=== PATIENT | female | born 1985 | race Caucasian/White ===

== ENCOUNTER 2016-08-31 12:55 | Inpatient (IN) | payer MEDICAID ==
[2016-08-31] MEDS ORDERED: ZOFRAN IV ONE (13:47)
[2016-08-31] MEDS ORDERED: NACL 0.9% 1000 ML 1,000 ML IV ONE (13:47)
--- NOTE | 2016-08-31 13:50 | Emergency Department Report ---
Chief Complaint: Nausea/Vomiting/Diarrhea Stated Complaint: N/V X3 DAYS Time Seen by Provider: 08/31/16 13:45 - HPI History of Present Illness: 31-year-old -Malagasy female that's now weeks was recently seen at [facility] on 08/27/2016 for complaints of nausea vomiting. Patient is here for reevaluation because symptoms persist she cannot keep any meds or foods down which has helped with her symptoms. - Exam Vital Signs: Vital Signs 08/31/16 13:37 Temperature 98.4 F Pulse Rate 107 H Respiratory 20 Rate Blood Pressure 125/80 O2 Sat by Pulse 100 Oximetry Physical Exam: Patient's alert and oriented but appears to be tired and weak, actively vomiting exam room. Cardiovascular tachycardic respiratory labor is abdomen soft nontender breath sounds noted. MSE screening note: Focused history and physical exam performed. Due to findings the following was ordered: Patient's been evaluated by this provider. Ordered CBC CMP lipase urinalysis urine quantitative IV insertion normal saline IV Zofran 4 mg. Patient be evaluated in the main ER ED Disposition for MSE Condition: Stable
[2016-08-31 14:21] LABS: Hematocrit 39.5 % (30.3-42.9); Hemoglobin 13.3 gm/dl (10.1-14.3); Mean Corpuscular HGB Conc 34 % (30-34); Mean Corpuscular Hemoglobin 31 pg (28-32); Mean Corpuscular Volume 92 fl (79-97); Platelet Count 220 K/mm3 (140-440); Red Blood Count 4.28 M/mm3 (3.65-5.03); Red Cell Distribution Width 12.7 % (13.2-15.2); White Blood Count 9.6 K/mm3 (4.5-11.0)
[2016-08-31 14:41] LABS: Alanine Aminotransferase 44 units/L (7-56); Albumin 4.2 g/dL (3.9-5); Albumin/Globulin Ratio 1.3 %; Alkaline Phosphatase 50 units/L (35-129); Anion Gap 24 mmol/L; Bilirubin,Total 0.4 mg/dL (0.1-1.2); Blood Urea Nitrogen 12 mg/dL (7-17); Calcium 9.9 mg/dL (8.4-10.2); Carbon Dioxide 18 mmol/L (22-30); Chloride 99.4 mmol/L (98-107); Glucose 74 mg/dL (65-100); Potassium 4.2 mmol/L (3.6-5.0); Sodium 137 mmol/L (137-145); Total Protein 7.4 g/dL (6.3-8.2)
[2016-08-31 14:56] LABS: Bilirubin,Urine NEG (Negative); Blood,Urine NEG (Negative); Ketones,Urine 80 mg/dL (Negative); Leukocyte Esterase,Urine MOD (Negative); Mucus,Urine 3+ /HPF; Nitrite,Urine NEG (Negative); Urobilinogen,Urine < 2.0 mg/dL (<2.0)
[2016-08-31] MEDS ORDERED: D5NS 1,000 ML IV SCH (16:00)
[2016-08-31] MEDS ORDERED: REGLAN IV ONE (16:04)
[2016-08-31] MEDS ORDERED: ROCEPHIN/NS 1 GM/50 ML 1 GM/50 ML BAG IV ONE ×2 (17:12→19:37)
--- NOTE | 2016-08-31 17:17 | Emergency Department Report ---
HPI - General Chief Complaint: Nausea/Vomiting/Diarrhea Time Seen by Provider: 08/31/16 13:45 - HPI HPI: Chief complaint: Vomiting HPI: Patient is a 31-year-old female who states she has been vomiting for the last month. Patient is 9 months with twins. Patient was seen 3 days ago at [facility] and given Zofran, Phenergan and Compazine and states she is still vomiting. Patient is 3, para 2, 1 miscarriage. Patient's first was twins as well. Mode of arrival: [private car] Source: [Patient] Began: One month ago Duration: One month Context: Patient denies hyperemesis with her first Quality: Abdominal pain Severity: 10 out of 10 Improved with: Sleeping Worsened with: Eating Associated signs and symptoms: No dysuria or fever ED Past Medical Hx - Past Medical History Previous Medical History?: No Additional medical history: CERVICAL CA - Social History Smoking Status: Never Smoker Substance Use Type: None ED Review of Systems ROS: Stated complaint: N/V X3 DAYS Other details as noted in HPI ROS Constitutional: No fever ENT: No uri symptoms Cardiovascular: No chest pain Respiratory: No sob or cough GI: No diarrhea : No dysuria frequency or urgency, Skin: No rash Neuro: No focal weakness or numbness Psych: No depression Piyush/lymph: No edema Physical Exam - Physical Exam Vital Signs: Vital Signs 08/31/16 13:37 Temperature 98.4 F Pulse Rate 107 H Respiratory 20 Rate Blood Pressure 125/80 O2 Sat by Pulse 100 Oximetry Physical Exam: GENERAL: The patient is a thin -Djib[place] female no acute distress. HEENT: Normocephalic. Atraumatic. Extraocular motions are intact. Patient has moist mucous membranes. NECK: Supple. No meningitic signs are noted. There is no adenopathy noted. CHEST/LUNGS: Clear to auscultation. There is no respiratory distress noted. HEART/CARDIOVASCULAR: Regular. There is no tachycardia. There is no gallop rub or murmur. ABDOMEN: Abdomen is soft, nontender. Patient has normal bowel sounds. There is no abdominal distention. SKIN: There is no rash. There is no edema. There is no diaphoresis. NEURO: The patient is awake, alert, and oriented. The patient is cooperative. The patient has no focal neurologic deficits. The patient has normal speech. MUSCULOSKELETAL: There is no tenderness or deformity. There is no limitation range of motion. There is no evidence of acute injury. ED Course Vital Signs 08/31/16 13:37 Temperature 98.4 F Pulse Rate 107 H Respiratory 20 Rate Blood Pressure 125/80 O2 Sat by Pulse 100 Oximetry - Reevaluation(s) Reevaluation #1: 08/31/16 17:18 Patient given a liter of normal saline and Zofran prior to my evaluation. Should been given a liter of D5 normal saline with Reglan without much improvement. Patient will be admitted to the [facility] custom decorating consultant Dr. Tiffany Jackson ED Medical Decision Making - Lab Data Result diagrams: 08/31/16 14:01 08/31/16 14:01 Laboratory Tests 08/31/16 08/31/16 08/31/16 14:01 14:01 14:11 Lipase 13 HCG, Quant > 26536 H Ur Specific [place] 1.031 H Urine Protein 100 mg/dl Urine Ketones 80 Ur Leukocyte Esterase Mod Urine WBC (Auto) 11.0 H Urine RBC (Auto) 5.0 U Epithel Cells (Auto) 14.0 H Critical care attestation.: If time is entered above; I have spent that time in minutes in the direct care of this critically ill patient, excluding procedure time. ED Disposition Clinical Impression: Hyperemesis gravidarum Urinary tract infection Qualifiers: Urinary tract infection type: site unspecified Hematuria presence: without hematuria Qualified Code(s): N39.0 - Urinary tract infection, site not specified Disposition: DISCHARGED TO HOME OR SELFCARE Is pt being admited?: Yes Does the pt Need Aspirin: No Condition: Fair Referrals: PRIMARY CARE, [Primary Care Provider] - 3-5 Days Time of Disposition: 17:23 (admit to Dr. Tiffany Jackson)
[2016-08-31] MEDS ORDERED: ALUM-MAG HYDROX-SIMETH 200-200-20MG/5ML PO PRN (17:37)
[2016-08-31] MEDS ORDERED: COLACE PO PRN (17:37)
[2016-08-31] MEDS ORDERED: TYLENOL PO PRN (17:37)
[2016-08-31] MEDS ORDERED: AMBIEN PO PRN (17:37)
[2016-08-31] MEDS ORDERED: MILK OF MAGNESIA PO PRN (17:37)
[2016-08-31] MEDS ORDERED: TRANSDERM-SCOP TD ONE (17:45)
--- NOTE | 2016-08-31 17:52 | History and Physical Report ---
History of Present Illness Date of examination: 08/31/16 Date of admission: 08/31/16 Chief complaint: nausea and vomiting History of present illness: This is a 31 yo at 9 weeks Patient unsure of LMP but states that she has care at [facility] and has had US there. She states for the last month she has been unable to keep any food down. She presented to [facility] and was given phenergan and zofran and discharged home and presented her with n/v. She denies nay vag bleeding no leaking and minimal cramping when she vomits. Past History Past Medical History: no pertinent history Past Surgical History: no surgical history, other (Leep in 2014 ) DIRECTOR FINANCIAL ANALYSIS History: abnormal PAP smear Family/Genetic History: diabetes, hypertension Social history: single. denies: smoking, alcohol abuse, prescription drug abuse , IV drug use Medications and Allergies Allergies Allergy/AdvReac Type Severity Reaction Status Date / Time acetaminophen [From Percocet] AdvReac Vomiting Verified 08/31/16 13:43 oxycodone HCl [From Percocet] AdvReac Vomiting Verified 08/31/16 13:43 Active Meds: Active Medications Dextrose/Sodium Chloride (D5ns) 1,000 mls @ 0 mls/hr IV DIRECT MIGUEL PRN Reason: Wide Open Last Admin: 08/31/16 16:15 Dose: 999 mls/hr Review of Systems Constitutional: weight loss, fatigue, weakness, no fever, no chills, no sweats, no anorexia Eyes: deferred Ears, nose, mouth and throat: deferred Cardiovascular: no chest pain, no palpitations, no rapid/irregular heart beat, no syncope, no dyspnea on exertion Respiratory: no cough Breasts: deferred Gastrointestinal: nausea, vomiting, no abdominal pain, no diarrhea, no constipation, no melena Genitourinary: normal appearance, dysuria, no vaginal bleeding, no vaginal discharge, no leakage of fluid Rectal Exam: deferred Integumentary: deferred - Vital Signs Vital signs: Vital Signs Temp Pulse Resp BP Pulse Ox 98.4 F 107 H 20 125/80 100 08/31/16 13:37 08/31/16 13:37 08/31/16 13:37 08/31/16 13:37 08/31/16 13:37 Temp Pulse Resp BP Pulse Ox 98.4 F 107 H 20 125/80 100 08/31/16 13:37 08/31/16 13:37 08/31/16 13:37 08/31/16 13:37 08/31/16 13:37 - Physical Exam Breasts: Positive: normal Cardiovascular: Regular rate, Normal S1, Normal S2 Lungs: Positive: Clear to auscultation, Normal air movement Abdomen: Positive: normal appearance, soft, normal bowel sounds. Negative: distention, tenderness Genitourinary (Female): Positive: normal external genitalia, normal perenium Vulva: both: normal Vagina: Positive: normal moisture Uterus: Positive: normal size, normal contour Extremities: Positive: normal Deep Tendon Reflex Grade: Normal +2 Results Result Diagrams: 08/31/16 14:01 08/31/16 14:01 Abnormal lab results 08/31/16 08/31/16 08/31/16 Range/Units 14:01 14:01 14:01 RDW 12.7 L (13.2-15.2) % Carbon Dioxide 18 L (22-30) mmol/L Creatinine 0.5 L (0.7-1.2) mg/dL HCG, Quant > 48701 H (0-4) mIU/mL Ur Specific [place] (1.003-1.030) Urine WBC (Auto) (0.0-6.0) /HPF U Epithel Cells (Auto) (0-13.0) /HPF 08/31/16 Range/Units 14:11 RDW (13.2-15.2) % Carbon Dioxide (22-30) mmol/L Creatinine (0.7-1.2) mg/dL HCG, Quant (0-4) mIU/mL Ur Specific [place] 1.031 H (1.003-1.030) Urine WBC (Auto) 11.0 H (0.0-6.0) /HPF U Epithel Cells (Auto) 14.0 H (0-13.0) /HPF All other labs normal. Assessment and Plan A/P HD#1 Hyperemesis Gravidarum and UTI and twins 1. will start IVF 2. antiemetics zofran, phenergan, scopolamine, steroids 3. urine dips q shift to gauge ketones ( currently with ketones) 4. s/p rocephin for UTI -await urine culture may treat with macrobid vs bactrim 5. await US to determine intrauterine 6. close monitor
--- NOTE | 2016-08-31 19:08 | Ultrasound Report ---
FINAL REPORT EXAM: US OB \T\lt; = 14 WK FETUS ADD GEST HISTORY: vomiting . LMP 06/24/2016 with estimated gestational age 9 weeks 5 days and EDC 03/31/2017. Serum beta HCG quantitation is \T\gt; 10,000 TECHNIQUE: Ultrasound of the pelvis using transvaginal imaging PRIORS: None. FINDINGS: Uterus: Uterus is enlarged in size and normal and homogeneous in echogenicity without focal fibroid formation. The uterus measures 14.0 x 8.0 x 11.7 cm in size. There is a twin early viable intrauterine gestation noted. The single placenta is located anteriorly without evidence for placenta previa. Intrauterine gestation: There is a twin intrauterine gestation identified. A small subchorionic hemorrhage is noted inferior to twin A's gestational sac which measures 2.3 x 0.6 x 0.9 cm. Twin A: A pole and yolk sac. heart rate is monitored at 158 BPM using M-mode doppler. [place]-rump length measurement of 3.3 cm corresponds to estimated age 10 weeks 1 days with EDC 03/28/2017. Twin B: A pole and yolk sac. heart rate is monitored at 167 BPM using M-mode doppler. [place]-rump length measurement of 3.4 cm corresponds to estimated age 10 weeks 2 days with EDC 03/27/2017. Ovaries: Both ovaries appear normal in size and echogenicity with normal blood flow bilaterally. The right ovary measures 3.9 x 2.5 x 1.5 cm on the left ovary measures 3.1 x 1.5 x 2.1 cm in size. In the right ovary, there is a 1.6 cm complex focus, probably a corpus luteum. A mildly complex cyst containing internal debris in the left ovary is noted measuring 1.6 cm. Other: There is no evidence for solid adnexal mass is seen. There is minimal free fluid in the cul-de-sac. IMPRESSION: Twin intrauterine viable with an approximate age of 10 weeks 1-2 days. Small subchorionic hemorrhage is noted along the margin of twin A gestational sac. HISTORY: TECHNIQUE: PRIORS: FINDINGS: IMPRESSION:
--- NOTE | 2016-08-31 19:08 | Ultrasound Report ---
FINAL REPORT EXAM: US OB \T\lt; = 14 WEEKS FETUS HISTORY: vomiting . LMP 06/24/2016 with estimated gestational age 9 weeks 5 days and EDC 03/31/2017. Serum beta HCG quantitation is \T\gt; 10,000 TECHNIQUE: Ultrasound of the pelvis using transvaginal imaging PRIORS: None. FINDINGS: Uterus: Uterus is enlarged in size and normal and homogeneous in echogenicity without focal fibroid formation. The uterus measures 14.0 x 8.0 x 11.7 cm in size. There is a twin early viable intrauterine gestation noted. The single placenta is located anteriorly without evidence for placenta previa. Intrauterine gestation: There is a twin intrauterine gestation identified. A small subchorionic hemorrhage is noted inferior to twin A's gestational sac which measures 2.3 x 0.6 x 0.9 cm. Twin A: A pole and yolk sac. heart rate is monitored at 158 BPM using M-mode doppler. [place]-rump length measurement of 3.3 cm corresponds to estimated age 10 weeks 1 days with EDC 03/28/2017. Twin B: A pole and yolk sac. heart rate is monitored at 167 BPM using M-mode doppler. [place]-rump length measurement of 3.4 cm corresponds to estimated age 10 weeks 2 days with EDC 03/27/2017. Ovaries: Both ovaries appear normal in size and echogenicity with normal blood flow bilaterally. The right ovary measures 3.9 x 2.5 x 1.5 cm on the left ovary measures 3.1 x 1.5 x 2.1 cm in size. In the right ovary, there is a 1.6 cm complex focus, probably a corpus luteum. A mildly complex cyst containing internal debris in the left ovary is noted measuring 1.6 cm. Other: There is no evidence for solid adnexal mass is seen. There is minimal free fluid in the cul-de-sac. IMPRESSION: Twin intrauterine viable with an approximate age of 10 weeks 1-2 days. Small subchorionic hemorrhage is noted along the margin of twin a gestational sac. HISTORY: TECHNIQUE: PRIORS: FINDINGS: IMPRESSION:
[2016-08-31] MEDS ORDERED: LACTATED RINGERS 1,000 ML ONE (19:37)
[2016-08-31] MEDS ORDERED: ZOFRAN ONE (20:35)
[2016-08-31] MEDS: ZOFRAN IV PRN (20:47)
[2016-08-31] MEDS: LACTATED RINGERS 1,000 ML IV SCH (21:50)
[2016-08-31 22:48] LABS: Basophils % (Auto) 0.4 % (0.0-1.8); Eosinophils % (Auto) 0.2 % (0.0-4.3); Hematocrit 33.1 % (30.3-42.9); Hemoglobin 11.3 gm/dl (10.1-14.3); Mean Corpuscular HGB Conc 34 % (30-34); Mean Corpuscular Hemoglobin 31 pg (28-32); Mean Corpuscular Volume 91 fl (79-97); Platelet Count 184 K/mm3 (140-440); Red Blood Count 3.63 M/mm3 (3.65-5.03); Red Cell Distribution Width 13.1 % (13.2-15.2); White Blood Count 7.7 K/mm3 (4.5-11.0)
[2016-08-31 23:08] LABS: Alanine Aminotransferase 32 units/L (7-56); Albumin 3.6 g/dL (3.9-5); Albumin/Globulin Ratio 1.4 %; Alkaline Phosphatase 40 units/L (35-129); Bilirubin,Total 0.4 mg/dL (0.1-1.2); Blood Urea Nitrogen 8 mg/dL (7-17); Calcium 8.5 mg/dL (8.4-10.2); Carbon Dioxide 18 mmol/L (22-30); Glucose 64 mg/dL (65-100); Total Protein 6.1 g/dL (6.3-8.2)
[2016-08-31 23:09] LABS: Anion Gap 20 mmol/L; Chloride 102.6 mmol/L (98-107); Potassium 3.5 mmol/L (3.6-5.0); Sodium 137 mmol/L (137-145)
[2016-08-31 23:40] LABS: Bacteria,Urine 3+ /HPF (Negative); Bilirubin,Urine NEG (Negative); Blood,Urine NEG (Negative); Ketones,Urine 80 mg/dL (Negative); Leukocyte Esterase,Urine SM (Negative); Mucus,Urine 3+ /HPF; Nitrite,Urine NEG (Negative); Urobilinogen,Urine < 2.0 mg/dL (<2.0)
[2016-09-01] MEDS: LACTATED RINGERS 1,000 ML IV SCH ×3 (08:00→23:50)
[2016-09-01] MEDS: ZOFRAN IV PRN ×3 (10:30→21:55)
--- NOTE | 2016-09-01 13:35 | Progress Note ---
Assessment and Plan A/P HD#2 Hyperemesis Gravidarum and UTI and twins, patient has not vomited overnight. She is hungry and able to keep jello down. 1. continue IVF 2. continue antiemetics zofran, phenergan, scopolamine, steroids 3. urine dips q shift to gauge ketones ( currently with ketones) 4. s/p rocephin for UTI -await urine culture may treat with macrobid vs bactri 5. US documented with twin IUP with subchorionic bleed 6. continue advancing diet 7. discussed subchorionic bleed in twin A - understands risk and f/u US recommended 8. yeast -treat with diflucan Subjective - Subjective Date of service: 09/01/16 Principal diagnosis: Hyperemesis Gravidarium, twin gestation Interval history: This is a 31 yo at 9 weeks Patient unsure of LMP but states that she has care at [facility] and has had US there. She states for the last month she has been unable to keep any food down. She presented to [facility] and was given phenergan and zofran and discharged home and presented her with n/v. She denies nay vag bleeding no leaking and minimal cramping when she vomits. Patient reports: no loss of fluid, no vaginal bleeding, no contractions Objective - Vital Signs Vital Signs: Vital Signs - 12hr 09/01/16 09/01/16 09/01/16 04:00 07:54 11:41 Temperature 98.6 F 98.3 F 98.3 F Pulse Rate [ 84 84 From Monitor] Pulse Rate [ 72 Left] Respiratory 16 16 18 Rate Blood Pressure 116/72 118/65 120/68 [Left Arm] - Exam Breasts: deferred, normal Cardiovascular: Regular rate, Normal S1, Normal S2 Lungs: Clear to auscultation, Normal air movement Abdomen: Present: normal appearance, soft, normal bowel sounds Vulva: both: normal Uterus: Present: normal, firm. Absent: bogginess, tenderness - Labs Labs: Abnormal Labs 08/31/16 08/31/16 08/31/16 21:59 21:59 23:05 RBC 3.63 L RDW 13.1 L [place] % (Auto) 10.6 H Carbon Dioxide 18 L Creatinine 0.4 L Glucose 64 L Total Protein 6.1 L Albumin 3.6 L Urine WBC (Auto) 8.0 H U Epithel Cells (Auto) 40.0 H Laboratory Results - last 24 hr 08/31/16 08/31/16 08/31/16 21:59 21:59 23:05 WBC 7.7 RBC 3.63 L Hgb 11.3 Hct 33.1 D MCV 91 MCH 31 MCHC 34 RDW 13.1 L Plt Count 184 Lymph % (Auto) 28.6 [place] % (Auto) 10.6 H Eos % (Auto) 0.2 Baso % (Auto) 0.4 Lymph # 2.2 [place] # 0.8 Eos # 0.0 Baso # 0.0 Seg Neutrophils % 60.2 Seg Neutrophils # 4.6 Carbon Dioxide 18 L BUN 8 Creatinine 0.4 L Estimated GFR > 60 BUN/Creatinine Ratio 20.00 Glucose 64 L Calcium 8.5 Total Bilirubin 0.4 AST 18 ALT 32 Alkaline Phosphatase 40 Total Protein 6.1 L Albumin 3.6 L Albumin/Globulin Ratio 1.4 Urine Color Yellow Urine Turbidity Turbid Urine pH 5.0 Ur Specific [place] 1.027 Urine Protein 30 mg/dl Urine Glucose (UA) 150 Urine Ketones 80 Urine Blood Neg Urine Nitrite Neg Urine Bilirubin Neg Urine Urobilinogen < 2.0 Ur Leukocyte Esterase Sm Urine WBC (Auto) 8.0 H Urine RBC (Auto) 0.0 U Epithel Cells (Auto) 40.0 H Urine Bacteria (Auto) 3+ Urine Mucus 3+
[2016-09-01] MEDS: PRENATAL VITAMIN PO SCH (14:24)
[2016-09-01 16:20] LABS: Mucus,Urine 2+ /HPF
[2016-09-01 16:21] LABS: Ketones,Urine 80 mg/dL (Negative)
[2016-09-01] MEDS: MACROBID PO SCH (21:55)
[2016-09-01] MEDS ORDERED: MONISTAT VG SCH (22:00)
[2016-09-02] MEDS: REGLAN IV PRN ×3 (00:25→13:45)
[2016-09-02] MEDS: LACTATED RINGERS 1,000 ML IV SCH (06:36)
--- NOTE | 2016-09-02 07:50 | Progress Note ---
Assessment and Plan A: Twin IUP at 10wks Hyperemesis- clinically improved GERD Desires care at [facility] Women's Risk Officer with Dr Jackson P: Routine care. Discharge today on Diclegis, Zofran, Reglan and Ranitidine with follow up in [address] Jackson. Subjective - Subjective Date of service: 09/02/16 Principal diagnosis: Hyperemesis Gravidarium, twin gestation Interval history: Pt feels nauseated but had no emesis overnight. She is requesting to go home today. Her urine is clear of ketones this morning. Patient reports: no new complaints, no loss of fluid, no vaginal bleeding, no contractions Objective - Vital Signs Vital Signs: Vital Signs - 12hr 09/01/16 09/02/16 09/02/16 21:00 01:20 05:26 Temperature 98.6 F 98.4 F 98.3 F Pulse Rate [ 83 94 H From Monitor] Pulse Rate [ 94 H Left] Respiratory 20 20 20 Rate Blood Pressure 128/76 116/65 116/71 [Left Arm] - Exam Breasts: deferred Cardiovascular: Regular rate Lungs: Clear to auscultation Abdomen: Present: soft Extremities: normal - Labs Labs: Abnormal Labs 08/31/16 08/31/16 08/31/16 21:59 21:59 23:05 RBC 3.63 L RDW 13.1 L [place] % (Auto) 10.6 H Carbon Dioxide 18 L Creatinine 0.4 L Glucose 64 L Total Protein 6.1 L Albumin 3.6 L Urine WBC (Auto) 8.0 H U Epithel Cells (Auto) 40.0 H 09/01/16 16:10 RBC RDW [place] % (Auto) Carbon Dioxide Creatinine Glucose Total Protein Albumin Urine WBC (Auto) U Epithel Cells (Auto) 15.0 H Laboratory Results - last 24 hr 09/01/16 09/02/16 16:10 06:20 Urine Ketones 80 Neg Urine WBC (Auto) 1.0 Urine RBC (Auto) 1.0 U Epithel Cells (Auto) 15.0 H Urine Mucus 2+
--- NOTE | 2016-09-02 07:52 | Discharge Summary ---
Providers - Providers Date of Admission: 08/31/16 18:25 Date of discharge: 09/02/16 Attending physician: SEGUN CORDOVA MD Primary care physician: BLOCK SAWYER Hospitalization Reason for admission: other (Hyperemesis, Twin IUP at 10 wks, GERD ) Procedure details: IV antiemetics Obstetric ultrasound IV hydration Hospital course: Pt was admitted for hyperemesis and inability to tolerate PO. She received an obstetric ultrasound and IV hydration and antiemetics. She met discharge criteria on hospital day #3. She will be discharged with PO antiemetics with a one week follow up visit in the office. Condition at discharge: Fair Disposition: DISCHARGED TO HOME OR SELFCARE - Discharge Diagnoses (1) Twin gestation in first trimester Status: Acute Qualifiers: Multiple gestation type: unspecified Qualified Code(s): O30.001 - Twin , unspecified number of placenta and unspecified number of amniotic sacs, first trimester (2) GERD (gastroesophageal reflux disease) Status: Acute Qualifiers: Esophagitis presence: esophagitis presence not specified Qualified Code(s) : K21.9 - Gastro-esophageal reflux disease without esophagitis (3) Hyperemesis gravidarum Status: Acute (4) Urinary tract infection Status: Acute Qualifiers: Urinary tract infection type: site unspecified Hematuria presence: without hematuria Indwelling urinary catheter type: I Encounter type: E Qualified Code(s): N39.0 - Urinary tract infection, site not specified Plan - Discharge Medications Prescriptions: Metoclopramide [Reglan] 10 mg PO TID PRN #30 tab PRN Reason: Nausea Nitrofurantoin [place]/M-Cryst [Macrobid CAP] 100 mg PO Q12HR #14 capsule Ondansetron [Zofran ODT TAB] 8 mg PO Q12HR PRN #20 tab.rapdis PRN Reason: Nausea Ranitidine HCl [Heartburn Relief] 150 mg PO BID #60 tablet - Provider Discharge Summary Activity: routine Diet: other (Avoid citrus fruits or juices and food containing tomatoes) Additional instructions: [] Smoking cessation referral if applicable(refer to patient education folder for contact #) [] Refer to [facility] Booklet Call your doctor immediately for: * Fever > 100.5 * Heavy vaginal bleeding ( >1 pad per hour) * Severe persistent headache * Shortness of breath * Reddened, hot, painful area to leg or breast * Drainage or odor from incision. * Keep incision clean and dry at all times and follow doctor's instructions regarding bathing/showering - Follow up plan Follow up: PRIMARY CARE, [Primary Care Provider] - 3-5 Days SEGUN CORDOVA MD [Staff Physician] - 7 Days
[2016-09-02] MEDS: MACROBID PO SCH (10:08)
[2016-09-02] MEDS: PRENATAL VITAMIN PO SCH (10:14)
[2016-09-02 12:35] VITALS: BP 128/68
--- NOTE | 2016-09-02 14:26 | Admit Criteria Form ---
Admission Criteria Documentation: HYPEREMESIS GRAVIDARUM Clinical Indications for Admission to Inpatient Care ( Place 'X' for any and all applicable criteria): Admission is indicated for ANY ONE of the following (1)(2)(3) [ ]I. Suspected serious gastrointestinal pathology (eg, acute fatty liver of , pancreatitis) as indicated by ANY ONE of the following (5)(6): [ ]a) Significantly elevated serum transaminase or bilirubin (eg, 2 or 3 times normal) [ ]b) Elevated serum amylase or lipase [ ]c) Elevated serum ammonia level [ ]d) Coagulopathy (eg, elevated PT, PTT) [ ]e) Ascites [ ]f) Encephalopathy [X ]II. Inpatient admission required rather than observation care (Also use Hyperemesis Gravidarum: Observation Care as appropriate) because of ANY ONE of the following (7) : [ ]a) Hemodynamic instability develops [X ]b) Vomiting that is severe or persistent [ ]c) Severe electrolyte abnormalities requiring inpatient care [ ]d) Metabolic disorder (eg, acidosis) that is severe or persistent [ ]e) Acute renal failure [ ]f) Altered mental status or medication side effects (eg, antiemetics) that are severe or persistent [ ]g) compromise identified [ ]h) Hydatidiform mole identified [ ]i) IV fluid to replace significant ongoing (eg, for over 24 hrs) losses (> 3 L/m2 per day) [ ]j) Parenteral nutrition regimen that must be implemented on inpatient basis [ ]k) Other condition, treatment or monitoring requiring inpatient admission Extended stay beyond goal length of stay may be needed for(2)(13): [ ]a) Severe electrolyte disorder that persists [ ]b) Severe malnutrition [ ]c) Acute fatty liver of [ ]d) Hydatidiform mole [ ]e) Wernicke encephalopathy or other PLUM [employer]ER complication (eg, osmotic demyelination syndrome) [ ]f) compromise The original [employer] content created by [employer] has been revised. The portions of the content which have been revised are identified through the use of italic text or in bold, and [facility] has neither reviewed nor approved the modified material. All other unmodified content is copyright [facility]. Please see references footnoted in the original [facility] edition 2016 Admission Criteria Met: Yes
== END 2016-09-02 14:25 | disposition home or self-care (01) | DRG 781 ==
LOC: ED 12:55 → OB 18:25
PROVIDERS: ADMIT Obstetrics & Gynecology; ATTEND Obstetrics & Gynecology
DX: O21.0 Mild hyperemesis gravidarum (principal); O23.41 Unspecified infection of urinary tract in pregnancy, first trimester; O26.891 Other specified pregnancy related conditions, first trimester; O30.001 Twin pregnancy, unspecified number of placenta and unspecified number of amniotic sacs, first trimester; O99.611 Diseases of the digestive system complicating pregnancy, first trimester; K21.9 Gastro-esophageal reflux disease without esophagitis; Z88.6 Allergy status to analgesic agent; Z3A.09 9 weeks gestation of pregnancy
CPT/HCPCS: 36415; 76801; 76802; 76817; 80053; 81001; 81015; 82010; 83690; 84702; 85025; 85027; 87086; 96361; 96365; 96375; J0696; J2405; J2765; J2930; J7030; J7042; J7120

== ENCOUNTER 2016-09-12 09:30 | Inpatient (IN) | payer MEDICAID ==
[2016-09-12 11:23] LABS: Basophils % (Auto) 0.4 % (0.0-1.8); Eosinophils % (Auto) 0.2 % (0.0-4.3); Hematocrit 36.6 % (30.3-42.9); Hemoglobin 12.5 gm/dl (10.1-14.3); Mean Corpuscular HGB Conc 34 % (30-34); Mean Corpuscular Hemoglobin 31 pg (28-32); Mean Corpuscular Volume 89 fl (79-97); Platelet Count 214 K/mm3 (140-440); Red Cell Distribution Width 12.7 % (13.2-15.2); White Blood Count 8.8 K/mm3 (4.5-11.0)
[2016-09-12] MEDS ORDERED: ZOFRAN IV PRN (11:30)
[2016-09-12 11:45] LABS: Alanine Aminotransferase 18 units/L (7-56); Albumin 3.8 g/dL (3.9-5); Albumin/Globulin Ratio 1.3 %; Alkaline Phosphatase 50 units/L (35-129); Amylase 136 units/L (27-131); Anion Gap 17 mmol/L; Bilirubin,Total 0.3 mg/dL (0.1-1.2); Blood Urea Nitrogen 5 mg/dL (7-17); Calcium 9.3 mg/dL (8.4-10.2); Carbon Dioxide 22 mmol/L (22-30); Chloride 99.9 mmol/L (98-107); Glucose 76 mg/dL (65-100); Lipase 17 units/L (13-60); Potassium 4.2 mmol/L (3.6-5.0); Sodium 135 mmol/L (137-145); Total Protein 6.8 g/dL (6.3-8.2)
[2016-09-12] MEDS: REGLAN IV SCH ×3 (12:25→23:41)
[2016-09-12] MEDS: D5LR 1,000 ML IV SCH ×4 (12:25→23:44)
[2016-09-12] MEDS: PHENERGAN PR SCH ×2 (12:25→17:15)
[2016-09-12 12:41] LABS: Bilirubin,Urine NEG (Negative); Blood,Urine NEG (Negative); Ketones,Urine 80 mg/dL (Negative); Leukocyte Esterase,Urine NEG (Negative); Mucus,Urine 1+ /HPF; Nitrite,Urine NEG (Negative); Urobilinogen,Urine < 2.0 mg/dL (<2.0); WBC,Urine < 1.0 /HPF (0.0-6.0)
[2016-09-12] MEDS: KCL 10MEQ/100ML 10 MEQ/100 ML BAG IV SCH ×3 (12:45→14:33)
--- NOTE | 2016-09-12 15:24 | Admit Criteria Form ---
Admission Criteria Documentation: HYPEREMESIS GRAVIDARUM Clinical Indications for Admission to Inpatient Care ( Place 'X' for any and all applicable criteria): Admission is indicated for ANY ONE of the following (1)(2)(3) [ ]I. Suspected serious gastrointestinal pathology (eg, acute fatty liver of , pancreatitis) as indicated by ANY ONE of the following (5)(6): [ ]a) Significantly elevated serum transaminase or bilirubin (eg, 2 or 3 times normal) [ ]b) Elevated serum amylase or lipase [ ]c) Elevated serum ammonia level [ ]d) Coagulopathy (eg, elevated PT, PTT) [ ]e) Ascites [ ]f) Encephalopathy [X ]II. Inpatient admission required rather than observation care (Also use Hyperemesis Gravidarum: Observation Care as appropriate) because of ANY ONE of the following (7) : [ ]a) Hemodynamic instability develops [X ]b) Vomiting that is severe or persistent [ ]c) Severe electrolyte abnormalities requiring inpatient care [ ]d) Metabolic disorder (eg, acidosis) that is severe or persistent [ ]e) Acute renal failure [ ]f) Altered mental status or medication side effects (eg, antiemetics) that are severe or persistent [ ]g) compromise identified [ ]h) Hydatidiform mole identified [ ]i) IV fluid to replace significant ongoing (eg, for over 24 hrs) losses (> 3 L/m2 per day) [ ]j) Parenteral nutrition regimen that must be implemented on inpatient basis [ ]k) Other condition, treatment or monitoring requiring inpatient admission Extended stay beyond goal length of stay may be needed for(2)(13): [ ]a) Severe electrolyte disorder that persists [ ]b) Severe malnutrition [ ]c) Acute fatty liver of [ ]d) Hydatidiform mole [ ]e) Wernicke encephalopathy or other SUPERVISOR [employer]OTOCOMPOSITION complication (eg, osmotic demyelination syndrome) [ ]f) compromise The original [email or web address] content created by [email or web address] has been revised. The portions of the content which have been revised are identified through the use of italic text or in bold, and [facility] has neither reviewed nor approved the modified material. All other unmodified content is copyright [facility]. Please see references footnoted in the original [facility] edition 2016 Admission Criteria Met: Yes
--- NOTE | 2016-09-12 18:46 | History and Physical Report ---
History of Present Illness Date of examination: 09/12/16 Date of admission: 09/12/16 10:48 Chief complaint: nausea, vomiting History of present illness: Pt is a 31 year old -[place] female who presents with two weeks of nausea and vomiting multiple times per day on PO Reglan and Zofran. This is her second hospitalization for hyperemesis this . She presented today to establish care at [facility] but she was found to be ill -appearing, have ketonuria and a 6 lb weight loss. She did have an episode of emesis at the office as well. 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) [employer] History: abnormal PAP smear Family/Genetic History: diabetes, hypertension Social history: no significant social history Medications and Allergies Allergies Allergy/AdvReac Type Severity Reaction Status Date / Time acetaminophen [From Percocet] AdvReac Vomiting Verified 08/31/16 13:43 oxycodone HCl [From Percocet] AdvReac Vomiting Verified 08/31/16 13:43 Home Medications Medication Instructions Recorded Confirmed Last Taken Type Metoclopramide [Reglan] 10 mg PO TID PRN #30 tab 09/02/16 Unknown Rx Nitrofurantoin [place]/M-Cryst 100 mg PO Q12HR #14 capsule 09/02/16 Unknown Rx [Macrobid CAP] Ondansetron [Zofran ODT TAB] 8 mg PO Q12HR PRN #20 tab.rapdis 09/02/16 Unknown Rx Ranitidine HCl [Heartburn Relief] 150 mg PO BID #60 tablet 09/02/16 Unknown Rx Active Meds: Active Medications Dextrose/Lactated Ringer's (D5lr) 1,000 mls @ 150 mls/hr IV DIRECT MIGUEL Last Admin: 09/12/16 17:25 Dose: 150 mls/hr Dextrose/Lactated Ringer's (D5lr) 1,000 mls @ 500 mls/hr IV DIRECT MIGUEL Stop: 09/13/16 13:59 Last Admin: 09/12/16 14:28 Dose: 500 mls/hr Metoclopramide HCl (Reglan) 10 mg IV Q6H MIGUEL Last Admin: 09/12/16 17:15 Dose: 10 mg Multivitamins/Iron/Calcium ( Vitamin) 1 each PO QDAY [facility] Ondansetron HCl (Zofran) 4 mg IV Q6H PRN PRN Reason: N/V unrelieved by Tahira Promethazine HCl (Phenergan) 25 mg AK Q6H [facility] Last Admin: 09/12/16 17:15 Dose: Not Given Review of Systems All systems: negative Gastrointestinal: abdominal pain, nausea, vomiting - Vital Signs Vital signs: Vital Signs Temp Pulse Resp BP 98.6 F 83 18 126/83 09/12/16 11:10 09/12/16 11:10 09/12/16 11:10 09/12/16 11:10 Temp Pulse Resp BP Pulse Ox 98.5 F 75 18 119/65 09/12/16 16:12 09/12/16 16:12 09/12/16 16:12 09/12/16 16:12 - Physical Exam Breasts: Positive: deferred Abdomen: Positive: soft. Negative: distention Results Result Diagrams: 09/12/16 11:03 09/12/16 11:03 Abnormal lab results 09/12/16 09/12/16 Range/Units 11:03 11:03 RDW 12.7 L (13.2-15.2) % Seg Neutrophils % 73.3 H (40.0-70.0) % Sodium 135 L (137-145) mmol/L BUN 5 L (7-17) mg/dL Creatinine 0.4 L (0.7-1.2) mg/dL Albumin 3.8 L (3.9-5) g/dL Amylase 136 H (27-131) units/L All other labs normal. Assessment and Plan A: Twin IUP at 11 wks Hyperemesis P: Admit for observation. Viability ultrasound IV hydration. IV antiemetics. Advance diet slowly.
[2016-09-13] MEDS: PHENERGAN PR SCH ×4 (04:05→23:47)
[2016-09-13] MEDS: D5LR 1,000 ML IV SCH ×3 (06:00→18:00)
[2016-09-13] MEDS: REGLAN IV SCH ×4 (06:27→23:48)
--- NOTE | 2016-09-13 08:42 | Progress Note ---
Assessment and Plan - Patient Problems (1) Hyperemesis gravidarum Current Visit: No Status: Acute Plan to address problem: advance diet as tolerated supportive care (2) Twin gestation in first trimester Current Visit: No Status: Acute Qualifiers: Multiple gestation type: unspecified Qualified Code(s): O30.001 - Twin , unspecified number of placenta and unspecified number of amniotic sacs, first trimester Subjective - Subjective Date of service: 09/13/16 Principal diagnosis: hyperemesis Interval history: Patient has not tolerated her diet yet. She reports emesis today. Denies abdominal pain Patient reports: no new complaints Objective - Vital Signs Vital Signs: Vital Signs - 12hr 09/13/16 00:00 Temperature 98.8 F Pulse Rate [ 72 Left Brachial] Respiratory 18 Rate Blood Pressure 108/70 [Left Arm] - Labs Labs: Abnormal Labs 09/12/16 09/12/16 11:03 11:03 RDW 12.7 L Seg Neutrophils % 73.3 H Sodium 135 L BUN 5 L Creatinine 0.4 L Albumin 3.8 L Amylase 136 H Laboratory Results - last 24 hr 09/12/16 09/12/16 09/12/16 11:03 11:03 12:00 WBC 8.8 RBC 4.10 Hgb 12.5 Hct 36.6 MCV 89 MCH 31 MCHC 34 RDW 12.7 L Plt Count 214 Lymph % (Auto) 20.6 [place] % (Auto) 5.5 Eos % (Auto) 0.2 Baso % (Auto) 0.4 Lymph # 1.8 [place] # 0.5 Eos # 0.0 Baso # 0.0 Seg Neutrophils % 73.3 H Seg Neutrophils # 6.5 Sodium 135 L Potassium 4.2 Chloride 99.9 Carbon Dioxide 22 Anion Gap 17 BUN 5 L Creatinine 0.4 L Estimated GFR > 60 BUN/Creatinine Ratio 12.50 Glucose 76 Calcium 9.3 Total Bilirubin 0.3 AST 14 ALT 18 Alkaline Phosphatase 50 Total Protein 6.8 Albumin 3.8 L Albumin/Globulin Ratio 1.3 Amylase 136 H Lipase 17 Urine Color Yellow Urine Turbidity Slightly-cloudy Urine pH 6.0 Ur Specific [place] 1.026 Urine Protein 30 mg/dl Urine Glucose (UA) Neg Urine Ketones 80 Urine Blood Neg Urine Nitrite Neg Urine Bilirubin Neg Urine Urobilinogen < 2.0 Ur Leukocyte Esterase Neg Urine WBC (Auto) < 1.0 Urine RBC (Auto) 0.0 U Epithel Cells (Auto) 3.0 Urine Mucus 1+ 09/12/16 23:45 WBC RBC Hgb Hct MCV MCH MCHC RDW Plt Count Lymph % (Auto) [place] % (Auto) Eos % (Auto) Baso % (Auto) Lymph # [place] # Eos # Baso # Seg Neutrophils % Seg Neutrophils # Sodium Potassium Chloride Carbon Dioxide Anion Gap BUN Creatinine Estimated GFR BUN/Creatinine Ratio Glucose Calcium Total Bilirubin AST ALT Alkaline Phosphatase Total Protein Albumin Albumin/Globulin Ratio Amylase Lipase Urine Color Urine Turbidity Urine pH Ur Specific [place] Urine Protein Urine Glucose (UA) Urine Ketones Neg Urine Blood Urine Nitrite Urine Bilirubin Urine Urobilinogen Ur Leukocyte Esterase Urine WBC (Auto) Urine RBC (Auto) U Epithel Cells (Auto) Urine Mucus
--- NOTE | 2016-09-13 09:28 | Ultrasound Report ---
OB ultrasound x2: Baby A: The uterus measures 8.4 x 11.9 x 13.6 cm. The left ovary measures 3.4 and the right ovary measures 2.3 cm. Both ovaries appear echogenically unremarkable. The crown-rump length measures 55.7 mm equivalent to a 12 week one day gestation. There is a pole. There is a heart rate 148 beats per minute. Baby B: The pole measures 57.4 mm equivalent to a 12 week 2 day gestation. There is heart motion of 156 beats per minute. No intrauterine complications identified involving either Baby B or Baby B.
[2016-09-13] MEDS: PRENATAL VITAMIN PO SCH (11:55)
[2016-09-14] MEDS: D5LR 1,000 ML IV SCH (01:26)
[2016-09-14] MEDS: PHENERGAN PR SCH ×2 (06:34→14:22)
[2016-09-14] MEDS: REGLAN IV SCH ×2 (06:35→14:03)
[2016-09-14] MEDS: PRENATAL VITAMIN PO SCH (11:03)
--- NOTE | 2016-09-14 12:53 | Discharge Summary ---
Providers - Providers Date of Admission: 09/13/16 09:54 Date of discharge: 09/14/16 Attending physician: RUSSELL JOSHUA 09/12/16 10:13 Consult to Dietitian/Nutrition [CONS] Routine Physician Instructions: Reason For Exam: Reason for Consult: hyper grav Reason for Consult: Hyperemesis 09/14/16 11:44 Consult to Case Management [CONS] Urgent Services Needed at Discharge: Family Law Attorney Notified:: yes Phone number called:: [phone] Was contact made?: Yes Comment:: please see as soon as possible. To go home today Additional Physician Instructions: Pt. may be homeless. Primary care physician: COMPUTER SYSTEM TECHNICIAN Hospitalization Reason for admission: other (12 week twin gestation, hyperemesis) Condition at discharge: Good Disposition: DISCHARGED TO HOME OR SELFCARE Plan - Discharge Medications Prescriptions: Metoclopramide [Reglan] 10 mg PO TID PRN #90 tab PRN Reason: Nausea Promethazine [Phenergan SUPPOS] 25 mg MD Q6HR PRN #20 supp.rect PRN Reason: Nausea - Provider Discharge Summary Activity: routine Additional instructions: [] Smoking cessation referral if applicable(refer to patient education folder for contact #) [] Refer to [facility]'s [facility] Booklet Call your doctor immediately for: * Fever > 100.5 * Heavy vaginal bleeding ( >1 pad per hour) * Severe persistent headache * Shortness of breath * Reddened, hot, painful area to leg or breast * Drainage or odor from incision. * Keep incision clean and dry at all times and follow doctor's instructions regarding bathing/showering - Follow up plan Follow up: PRIMARY CARE, [Primary Care Provider] - 14 Days (RTO 2 weeks for routine care) Forms: Work/School Release Form
--- NOTE | 2016-09-14 13:32 | Progress Note ---
Assessment and Plan A: IUP at 12 weeks twins Hyperemesis P; D/c home Rx meds Subjective - Subjective Date of service: 09/14/16 Principal diagnosis: hyperemesis Patient reports: other (Denies emesis, last episode of vomiting yesterday morning), no new complaints Objective - Vital Signs Vital Signs: Vital Signs - 12hr 09/14/16 09:15 Temperature 98.0 F Pulse Rate [ 96 H Radial] Respiratory 18 Rate Blood Pressure 110/50 [Left Arm] - Exam Breasts: deferred Abdomen: Present: normal appearance, soft. Absent: distention - Labs Labs: Abnormal Labs 09/12/16 09/12/16 11:03 11:03 RDW 12.7 L Seg Neutrophils % 73.3 H Sodium 135 L BUN 5 L Creatinine 0.4 L Albumin 3.8 L Amylase 136 H
[2016-09-14 14:18] VITALS: BP 124/50
== END 2016-09-14 14:45 | disposition home or self-care (01) | DRG 781 ==
LOC: UNDOADMOB 09:30 → 3A 09:30 → OB 09:54 → OBSVTOIN 09-13 09:54
PROVIDERS: ADMIT Obstetrics & Gynecology; ATTEND Obstetrics & Gynecology
DX: O21.0 Mild hyperemesis gravidarum (principal); O30.001 Twin pregnancy, unspecified number of placenta and unspecified number of amniotic sacs, first trimester; Z3A.11 11 weeks gestation of pregnancy
CPT/HCPCS: 36415; 76801; 76802; 80053; 81001; 82010; 82150; 83690; 85025; G0378; G0379; J1720; J2765; J3480; J7121